=== PATIENT | male | born 1955 | race Caucasian/White ===

== ENCOUNTER 2016-10-07 08:01 | Emergency (ER) | payer OTHER, BC ==
[~2016-10-07] VITALS: Ht 182.9 cm; Wt 95.2 kg
[~2016-10-07 08:01] MED LIST: ASPIR 8181 MG PO; CLOPIDOGREL75 MG PO; CYCLOBENZAPRINE10 MG PO; EFFEXOR XR150 MG; METFORMIN HCL500 MG; METFORMIN HCL750 MG PO; METOPROLOL SUCC50 MG PO; NAPROXEN500 MG PO; PLAVIX75 MG PO; VENLAFAXINE HCL75 MG PO
[2016-10-07] MEDS ORDERED: ROBAXIN-750750 MG PO (08:38)
== END 2016-10-07 10:19 | disposition home or self-care (01) ==
LOC: ED 08:01
DX: M62.830 Muscle spasm of back (principal); E11.9 Type 2 diabetes mellitus without complications; F32.9 Major depressive disorder, single episode, unspecified; I10 Essential (primary) hypertension; Z91.040 Latex allergy status; Z88.5 Allergy status to narcotic agent; Z88.1 Allergy status to other antibiotic agents; Z79.84 Long term (current) use of oral hypoglycemic drugs; Z79.899 Other long term (current) drug therapy; Z79.82 Long term (current) use of aspirin
CPT/HCPCS: 96374; 96375; 99283; J1100; J1885

== ENCOUNTER 2016-10-10 02:26 | Emergency (ER) | payer OTHER, BC ==
[~2016-10-10] VITALS: Ht 182.9 cm; Wt 95.2 kg
[~2016-10-10 02:26] MED LIST changes: +ROBAXIN-750750 MG PO
[2016-10-10] MEDS ORDERED: NUCYNTA50 MG PO (03:58)
== END 2016-10-10 04:10 | disposition home or self-care (01) ==
LOC: ED 02:26
DX: M54.5 Low back pain (principal); E11.9 Type 2 diabetes mellitus without complications; F32.9 Major depressive disorder, single episode, unspecified; I25.2 Old myocardial infarction; Z88.8 Allergy status to other drugs, medicaments and biological substances; Z88.5 Allergy status to narcotic agent; Z79.899 Other long term (current) drug therapy
CPT/HCPCS: 96374; 96375; 96376; 99283; J1170; J1885; J2405

== ENCOUNTER 2018-04-14 22:56 | Emergency (ER) | payer OTHER ==
[~2018-04-14] VITALS: Ht 182.9 cm; Wt 95.2 kg
[~2018-04-14 22:56] MED LIST changes: +NUCYNTA50 MG PO
[2018-04-15] MEDS ORDERED: PROTONIX40 MG PO (01:16)
[2018-04-15] MEDS ORDERED: ZOFRAN4 MG PO (01:18)
== END 2018-04-15 01:30 | disposition home or self-care (01) ==
LOC: ED 22:56
DX: R10.13 Epigastric pain (principal); E11.9 Type 2 diabetes mellitus without complications; F32.9 Major depressive disorder, single episode, unspecified; I25.2 Old myocardial infarction; Z91.040 Latex allergy status; Z88.5 Allergy status to narcotic agent; Z88.8 Allergy status to other drugs, medicaments and biological substances; Z79.899 Other long term (current) drug therapy; Z79.82 Long term (current) use of aspirin
CPT/HCPCS: 74177; 80053; 81001; 83690; 85025; 96361; 96374; 96375; 99284-25; J1170; J2405; J7030; Q9967

== ENCOUNTER 2019-04-22 01:39 | Emergency (ER) | payer BC ==
[~2019-04-22] VITALS: Ht 182.9 cm; Wt 95.2 kg
[~2019-04-22 01:39] MED LIST changes: +PROTONIX40 MG PO; +ZOFRAN4 MG PO
[2019-04-22] MEDS ORDERED: VICTOZA 3-0.6 MG/0.1 SUB-Q (01:52)
[2019-04-22] MEDS ORDERED: FENOFIBRATE145 MG PO (01:52)
== END 2019-04-22 03:38 | disposition home or self-care (01) ==
LOC: ED 01:39
DX: R11.2 Nausea with vomiting, unspecified (principal); R19.7 Diarrhea, unspecified; K57.90 Diverticulosis of intestine, part unspecified, without perforation or abscess without bleeding; E11.9 Type 2 diabetes mellitus without complications; F32.9 Major depressive disorder, single episode, unspecified; I25.2 Old myocardial infarction; Z87.891 Personal history of nicotine dependence; Z88.8 Allergy status to other drugs, medicaments and biological substances; Z91.040 Latex allergy status; Z88.5 Allergy status to narcotic agent; Z79.899 Other long term (current) drug therapy; Z79.82 Long term (current) use of aspirin
CPT/HCPCS: 74177; 80053; 81001; 83690; 85025; 96361; 99284-25; J2405; J7030; Q9967

== ENCOUNTER 2020-01-21 03:29 | Emergency (ER) | payer BC ==
[~2020-01-21] VITALS: Ht 182.9 cm; Wt 99.8 kg
[~2020-01-21 03:29] MED LIST changes: +FENOFIBRATE145 MG PO; +VICTOZA 3-0.6 MG/0.1 SUB-Q
[2020-01-21] MEDS ORDERED: LANTUS SOL100 UNIT/1 SUB-Q (03:52)
[2020-01-21] MEDS ORDERED: HUMALOG100 UNIT/2 SUB-Q (03:53)
[2020-01-21] MEDS ORDERED: JARDIANCE10 MG PO (03:53)
[2020-01-21] MEDS ORDERED: CYCLOBENZAPRINE10 MG PO (03:53)
[2020-01-21] MEDS ORDERED: VENLAFAXINE HC225 MG PO (03:54)
[2020-01-21] MEDS ORDERED: METHOCARBAMOL750 MG PO (03:54)
[2020-01-21] MEDS ORDERED: VALIUM10 MG PO (05:16)
== END 2020-01-21 05:30 | disposition home or self-care (01) ==
LOC: ED 03:29
DX: M62.830 Muscle spasm of back (principal); E11.9 Type 2 diabetes mellitus without complications; F32.9 Major depressive disorder, single episode, unspecified; I25.2 Old myocardial infarction; Z88.8 Allergy status to other drugs, medicaments and biological substances; Z91.040 Latex allergy status; Z88.5 Allergy status to narcotic agent; Z79.899 Other long term (current) drug therapy; Z79.82 Long term (current) use of aspirin; Z79.4 Long term (current) use of insulin
CPT/HCPCS: 99283; A9270

== ENCOUNTER 2022-07-16 09:06 | Emergency (ER) | payer BC ==
[~2022-07-16] VITALS: Ht 182.9 cm; Wt 103.0 kg
[~2022-07-16 09:06] MED LIST changes: +BACTRIM DS TAB1 EACH PO; +HUMALOG100 UNIT/2 SUB-Q; +JARDIANCE10 MG PO; +LANTUS SOL100 UNIT/1 SUB-Q; +METHOCARBAMOL750 MG PO; +VALIUM10 MG PO; +VENLAFAXINE HC225 MG PO
[2022-07-16] MEDS ORDERED: REPATHA SY140 MG/1 M IV/IM (09:47)
[2022-07-16] MEDS ORDERED: CYCLOBENZAPRINE10 MG PO (10:15)
== END 2022-07-16 11:16 | disposition home or self-care (01) ==
LOC: ED 09:06
DX: M54.50 Low back pain, unspecified (principal); E11.9 Type 2 diabetes mellitus without complications; Z88.5 Allergy status to narcotic agent; Z88.8 Allergy status to other drugs, medicaments and biological substances; Z91.040 Latex allergy status; Z79.899 Other long term (current) drug therapy; Z79.4 Long term (current) use of insulin
CPT/HCPCS: 96372; 99283; A9270; J1885